=== PATIENT | female | born 1935 | race African-American/Black ===

== ENCOUNTER 2022-09-15 15:48 | Inpatient (IN) | payer MEDICARE, BC ==
[~2022-09-15] VITALS: Ht 170.2 cm; Wt 123.8 kg
[~2022-09-15 15:48] MED LIST: ASPI-1073 PO; HYDR25TA PO
[2022-09-15] MEDS ORDERED: CLONIDINE 0.1MG TABLET PO PRN (17:15)
[2022-09-15] MEDS ORDERED: ONDANSETRON HCL 4MG/2ML INJ IV PRN (17:15)
[2022-09-15 17:30] VITALS: BP 118/71
[2022-09-15] MEDS ORDERED: ACETAMINOPHEN 325MG TABLET PO PRN (18:00)
[2022-09-15 20:00] VITALS: BP 139/68
[2022-09-15] MEDS: ATORVASTATIN CALCIUM 40MG TABLET PO SCH (22:12)
[2022-09-16 08:00] VITALS: BP 137/85
[2022-09-16] MEDS: CLOPIDOGREL 75MG TABLET PO SCH (08:53)
[2022-09-16] MEDS: DOCUSATE SODIUM 250MG CAPSULE PO SCH (08:54)
[2022-09-16] MEDS: ASPIRIN 81MG TABLET PO SCH (08:54)
[2022-09-16 09:23] LABS: BASOPHILS % 0.6 % (0.0-2.0); EOSINOPHILS % 2.6 % (0.0-5.0); HEMATOCRIT. 43.8 % (36.0-48.0); HEMOGLOBIN. 14.3 g/dL (12.0-16.0); MEAN CORPUSCULAR HEMOGLOBIN 31.8 pg (28.0-32.0); MEAN CORPUSCULAR VOLUME 97.1 fL (81.0-99.0); MEAN PLATELET VOLUME 9.5 fl (7.4-10.4); MONOCYTES % 8.6 % (2.0-8.0); NEUTROPHILS % 61.2 % (40.0-76.0); PLATELET 220 x1000/uL (130-400); RED BLOOD CELL COUNT 4.51 mill/uL (4.2-5.4); RED CELL DISTRIBUTION WIDTH 13.3 % (11.6-14.6)
[2022-09-16 09:56] LABS: CHLORIDE 111 mEq/L (98-107)
[2022-09-16 10:22] LABS: HDL CHOLESTEROL 39 mg/dL (40-59); LDL CHOLESTEROL 59 mg/dL (5-100); TOTAL IRON BINDING CAPACITY 270 ug/dL (250-450)
[2022-09-16 10:31] LABS: FOLIC ACID (FOLATE) SERUM 10.4 ng/mL (>5.38)
[2022-09-16 12:00] VITALS: BP 133/87
[2022-09-16 16:00] VITALS: BP 130/81
[2022-09-16] MEDS: ENOXAPARIN 40MG/0.4ML SYR SUBCUT SCH (17:50)
[2022-09-16] MEDS ORDERED: LORAZEPAM 2MG/ML CPJ IV NR (18:30)
[2022-09-16 19:58] VITALS: BP 133/79
[2022-09-16] MEDS: ATORVASTATIN CALCIUM 40MG TABLET PO SCH (22:11)
[2022-09-17 08:00] VITALS: BP 146/86
[2022-09-17 08:55] LABS: CLARITY URINE CLEAR (CLEAR); COLOR URINE YELLOW (YELLOW)
[2022-09-17 08:56] LABS: KETONES URINE NEGATIVE (NEGATIVE); NITRITE URINE NEGATIVE (NEGATIVE); OCCULT BLOOD URINE NEGATIVE (NEGATIVE); PROTEIN URINE NEGATIVE (NEGATIVE)
[2022-09-17 08:57] LABS: LEUKOCYTE ESTERASE URINE NEGATIVE (NEGATIVE)
[2022-09-17] MEDS: ASPIRIN 81MG TABLET PO SCH (09:31)
[2022-09-17] MEDS: DOCUSATE SODIUM 250MG CAPSULE PO SCH (09:31)
[2022-09-17] MEDS: CLOPIDOGREL 75MG TABLET PO SCH (09:31)
[2022-09-17] MEDS: ENOXAPARIN 40MG/0.4ML SYR SUBCUT SCH (09:32)
[2022-09-17 17:37] LABS: EOSINOPHILS % 4.6 % (0.0-5.0); HEMATOCRIT. 39.2 % (36.0-48.0); HEMOGLOBIN. 12.9 g/dL (12.0-16.0); LYMPHOCYTES % 29.6 % (20.0-50.0); MEAN CORPUSCULAR HEMOGLOBIN 32.2 pg (28.0-32.0); MEAN CORPUSCULAR VOLUME 97.9 fL (81.0-99.0); MEAN PLATELET VOLUME 9.4 fl (7.4-10.4); NEUTROPHILS % 51.8 % (40.0-76.0); PLATELET 174 x1000/uL (130-400); RED BLOOD CELL COUNT 4.01 mill/uL (4.2-5.4); RED CELL DISTRIBUTION WIDTH 13.5 % (11.6-14.6)
[2022-09-17 20:00] VITALS: BP 108/58
[2022-09-17] MEDS: ATORVASTATIN CALCIUM 40MG TABLET PO SCH (21:16)
[2022-09-18 08:00] VITALS: BP 142/85
[2022-09-18] MEDS: ENOXAPARIN 40MG/0.4ML SYR SUBCUT SCH (10:34)
[2022-09-18] MEDS: ASPIRIN 81MG TABLET PO SCH (10:35)
[2022-09-18] MEDS: DOCUSATE SODIUM 250MG CAPSULE PO SCH (10:35)
[2022-09-18] MEDS: CLOPIDOGREL 75MG TABLET PO SCH (10:35)
[2022-09-18] MEDS: ATORVASTATIN CALCIUM 40MG TABLET PO SCH (21:32)
[2022-09-19 08:00] VITALS: BP 125/65
[2022-09-19] MEDS: CLOPIDOGREL 75MG TABLET PO SCH (08:48)
[2022-09-19] MEDS: ASPIRIN 81MG TABLET PO SCH (08:48)
[2022-09-19] MEDS: DOCUSATE SODIUM 250MG CAPSULE PO SCH (08:48)
[2022-09-19] MEDS: ENOXAPARIN 40MG/0.4ML SYR SUBCUT SCH (08:49)
[2022-09-19 20:00] VITALS: BP 142/70
[2022-09-19] MEDS: ATORVASTATIN CALCIUM 40MG TABLET PO SCH (21:41)
[2022-09-20 08:00] VITALS: BP 117/70
[2022-09-20] MEDS: ASPIRIN 81MG TABLET PO SCH (12:27)
[2022-09-20] MEDS: CLOPIDOGREL 75MG TABLET PO SCH (12:27)
[2022-09-20] MEDS: DOCUSATE SODIUM 250MG CAPSULE PO SCH (12:28)
[2022-09-20] MEDS: ENOXAPARIN 40MG/0.4ML SYR SUBCUT SCH (12:28)
[2022-09-20 20:00] VITALS: BP 122/79
[2022-09-20] MEDS: ATORVASTATIN CALCIUM 40MG TABLET PO SCH (20:51)
[2022-09-21 06:14] LABS: BASOPHILS % 0.5 % (0.0-2.0); EOSINOPHILS % 4.9 % (0.0-5.0); HEMATOCRIT. 41.3 % (36.0-48.0); HEMOGLOBIN. 13.6 g/dL (12.0-16.0); LYMPHOCYTES % 29.2 % (20.0-50.0); MEAN CORPUSCULAR HEMOGLOBIN 32.2 pg (28.0-32.0); MEAN CORPUSCULAR VOLUME 97.9 fL (81.0-99.0); MEAN PLATELET VOLUME 9.8 fl (7.4-10.4); MONOCYTES % 11.3 % (2.0-8.0); NEUTROPHILS % 54.1 % (40.0-76.0); PLATELET 180 x1000/uL (130-400); RED BLOOD CELL COUNT 4.22 mill/uL (4.2-5.4); RED CELL DISTRIBUTION WIDTH 13.4 % (11.6-14.6)
[2022-09-21 07:50] VITALS: BP 138/78
[2022-09-21] MEDS: DOCUSATE SODIUM 250MG CAPSULE PO SCH (07:53)
[2022-09-21] MEDS: ASPIRIN 81MG TABLET PO SCH (07:53)
[2022-09-21] MEDS: ENOXAPARIN 40MG/0.4ML SYR SUBCUT SCH (07:53)
[2022-09-21] MEDS: CLOPIDOGREL 75MG TABLET PO SCH (07:53)
[2022-09-21 19:45] VITALS: BP 120/75
[2022-09-21] MEDS: ATORVASTATIN CALCIUM 40MG TABLET PO SCH (22:18)
[2022-09-22 08:00] VITALS: BP 143/85
[2022-09-22] MEDS: ENOXAPARIN 40MG/0.4ML SYR SUBCUT SCH (10:10)
[2022-09-22] MEDS: ASPIRIN 81MG TABLET PO SCH (10:10)
[2022-09-22] MEDS: CLOPIDOGREL 75MG TABLET PO SCH (10:10)
[2022-09-22] MEDS: DOCUSATE SODIUM 250MG CAPSULE PO SCH (10:11)
[2022-09-22 20:00] VITALS: BP 128/83
[2022-09-22] MEDS: ATORVASTATIN CALCIUM 40MG TABLET PO SCH (21:51)
[2022-09-23 08:00] VITALS: BP 132/76
[2022-09-23] MEDS: DOCUSATE SODIUM 250MG CAPSULE PO SCH ×2 (08:58→09:04)
[2022-09-23] MEDS: CLOPIDOGREL 75MG TABLET PO SCH (08:59)
[2022-09-23] MEDS: ASPIRIN 81MG TABLET PO SCH (08:59)
[2022-09-23] MEDS: ENOXAPARIN 40MG/0.4ML SYR SUBCUT SCH (08:59)
[2022-09-23 20:00] VITALS: BP 113/74
[2022-09-23] MEDS: ATORVASTATIN CALCIUM 40MG TABLET PO SCH (21:56)
[2022-09-24 06:01] LABS: BASOPHILS % 0.8 % (0.0-2.0); EOSINOPHILS % 5.4 % (0.0-5.0); HEMATOCRIT. 39.1 % (36.0-48.0); HEMOGLOBIN. 12.8 g/dL (12.0-16.0); LYMPHOCYTES % 28.5 % (20.0-50.0); MEAN CORPUSCULAR HEMOGLOBIN 32.1 pg (28.0-32.0); MEAN PLATELET VOLUME 9.6 fl (7.4-10.4); MONOCYTES % 11.4 % (2.0-8.0); NEUTROPHILS % 53.9 % (40.0-76.0); PLATELET 192 x1000/uL (130-400); RED BLOOD CELL COUNT 3.99 mill/uL (4.2-5.4); RED CELL DISTRIBUTION WIDTH 13.3 % (11.6-14.6)
[2022-09-24 08:00] VITALS: BP 130/72
[2022-09-24] MEDS: ENOXAPARIN 40MG/0.4ML SYR SUBCUT SCH (08:53)
[2022-09-24] MEDS: CLOPIDOGREL 75MG TABLET PO SCH (08:53)
[2022-09-24] MEDS: ASPIRIN 81MG TABLET PO SCH (08:53)
[2022-09-24] MEDS: DOCUSATE SODIUM 250MG CAPSULE PO SCH (08:54)
[2022-09-24 20:12] VITALS: BP 134/74
[2022-09-24] MEDS: ATORVASTATIN CALCIUM 40MG TABLET PO SCH (21:14)
[2022-09-25 07:58] VITALS: BP 140/76
[2022-09-25] MEDS: DOCUSATE SODIUM 250MG CAPSULE PO SCH (08:33)
[2022-09-25] MEDS: ASPIRIN 81MG TABLET PO SCH (08:33)
[2022-09-25] MEDS: ENOXAPARIN 40MG/0.4ML SYR SUBCUT SCH (08:33)
[2022-09-25] MEDS: CLOPIDOGREL 75MG TABLET PO SCH (08:37)
[2022-09-25 19:58] VITALS: BP 124/78
[2022-09-25] MEDS: ATORVASTATIN CALCIUM 40MG TABLET PO SCH (21:00)
[2022-09-26 08:00] VITALS: BP 139/87
[2022-09-26] MEDS: ENOXAPARIN 40MG/0.4ML SYR SUBCUT SCH (09:44)
[2022-09-26] MEDS: ASPIRIN 81MG TABLET PO SCH (09:44)
[2022-09-26] MEDS: CLOPIDOGREL 75MG TABLET PO SCH (09:44)
[2022-09-26] MEDS: DOCUSATE SODIUM 250MG CAPSULE PO SCH (09:44)
[2022-09-26 20:00] VITALS: BP 111/63
[2022-09-26] MEDS: ATORVASTATIN CALCIUM 40MG TABLET PO SCH (21:03)
[2022-09-27 07:57] VITALS: BP 122/81
[2022-09-27] MEDS: DOCUSATE SODIUM 250MG CAPSULE PO SCH (10:11)
[2022-09-27] MEDS: ASPIRIN 81MG TABLET PO SCH (10:11)
[2022-09-27] MEDS: ENOXAPARIN 40MG/0.4ML SYR SUBCUT SCH (10:11)
[2022-09-27] MEDS: CLOPIDOGREL 75MG TABLET PO SCH (10:11)
[2022-09-27 20:00] VITALS: BP 144/77
[2022-09-27] MEDS: ATORVASTATIN CALCIUM 40MG TABLET PO SCH (21:33)
[2022-09-28 07:40] VITALS: BP 144/84
[2022-09-28] MEDS: CLOPIDOGREL 75MG TABLET PO SCH (08:54)
[2022-09-28] MEDS: ENOXAPARIN 40MG/0.4ML SYR SUBCUT SCH (08:55)
[2022-09-28] MEDS: ASPIRIN 81MG TABLET PO SCH (08:55)
[2022-09-28] MEDS: DOCUSATE SODIUM 250MG CAPSULE PO SCH (08:55)
[2022-09-28 19:50] VITALS: BP 140/80
[2022-09-28] MEDS: ATORVASTATIN CALCIUM 40MG TABLET PO SCH (21:50)
[2022-09-29 08:00] VITALS: BP 115/68
[2022-09-29] MEDS: CLOPIDOGREL 75MG TABLET PO SCH (09:03)
[2022-09-29] MEDS: DOCUSATE SODIUM 250MG CAPSULE PO SCH (09:03)
[2022-09-29] MEDS: ASPIRIN 81MG TABLET PO SCH (09:03)
[2022-09-29] MEDS: ENOXAPARIN 40MG/0.4ML SYR SUBCUT SCH (09:05)
[2022-09-29 20:00] VITALS: BP 155/80
[2022-09-29] MEDS: ATORVASTATIN CALCIUM 40MG TABLET PO SCH (21:52)
[2022-09-30 05:55] LABS: BASOPHILS % 0.7 % (0.0-2.0); EOSINOPHILS % 7.3 % (0.0-5.0); HEMATOCRIT. 39.6 % (36.0-48.0); HEMOGLOBIN. 13.4 g/dL (12.0-16.0); LYMPHOCYTES % 28.4 % (20.0-50.0); MEAN CORPUSCULAR HEMOGLOBIN 32.7 pg (28.0-32.0); MEAN CORPUSCULAR VOLUME 96.8 fL (81.0-99.0); MEAN PLATELET VOLUME 9.1 fl (7.4-10.4); MONOCYTES % 9.5 % (2.0-8.0); NEUTROPHILS % 54.1 % (40.0-76.0); PLATELET 195 x1000/uL (130-400); RED BLOOD CELL COUNT 4.09 mill/uL (4.2-5.4); RED CELL DISTRIBUTION WIDTH 13.6 % (11.6-14.6)
[2022-09-30 07:40] VITALS: BP 106/66
[2022-09-30] MEDS: CLOPIDOGREL 75MG TABLET PO SCH (08:16)
[2022-09-30] MEDS: ASPIRIN 81MG TABLET PO SCH (08:16)
[2022-09-30] MEDS: DOCUSATE SODIUM 250MG CAPSULE PO SCH (08:16)
[2022-09-30] MEDS: ENOXAPARIN 40MG/0.4ML SYR SUBCUT SCH (08:17)
[2022-09-30 19:41] VITALS: BP 113/68
[2022-09-30] MEDS: ATORVASTATIN CALCIUM 40MG TABLET PO SCH (20:17)
[2022-10-01 08:00] VITALS: BP 107/107
[2022-10-01] MEDS: ASPIRIN 81MG TABLET PO SCH (09:09)
[2022-10-01] MEDS: CLOPIDOGREL 75MG TABLET PO SCH (09:09)
[2022-10-01] MEDS: DOCUSATE SODIUM 250MG CAPSULE PO SCH (09:09)
[2022-10-01] MEDS: ENOXAPARIN 40MG/0.4ML SYR SUBCUT SCH (09:09)
[2022-10-01 19:47] VITALS: BP 119/71
[2022-10-01] MEDS ORDERED: LACTULOSE 20G/30ML UDC PO NR (20:00)
[2022-10-01] MEDS: ATORVASTATIN CALCIUM 40MG TABLET PO SCH (21:16)
[2022-10-02 08:00] VITALS: BP 104/64
[2022-10-02] MEDS ORDERED: POLYETHYLENE GLYCOL 3350 (17GM) 1 DOSE PACK PO SCH (09:00)
[2022-10-02] MEDS: DOCUSATE SODIUM 250MG CAPSULE PO SCH (09:08)
[2022-10-02] MEDS: CLOPIDOGREL 75MG TABLET PO SCH (09:08)
[2022-10-02] MEDS: ASPIRIN 81MG TABLET PO SCH (09:08)
[2022-10-02] MEDS: ENOXAPARIN 40MG/0.4ML SYR SUBCUT SCH (09:10)
[2022-10-02] MEDS ORDERED: ONDANSETRON HCL 4MG TABLET PO PRN (11:00)
[2022-10-02 14:16] VITALS: BP 119/79
[2022-10-02 15:43] LABS: BASOPHILS % 0.8 % (0.0-2.0); EOSINOPHILS % 4.1 % (0.0-5.0); HEMATOCRIT. 41.3 % (36.0-48.0); HEMOGLOBIN. 13.5 g/dL (12.0-16.0); LYMPHOCYTES % 29.3 % (20.0-50.0); MEAN CORPUSCULAR VOLUME 98.1 fL (81.0-99.0); MEAN PLATELET VOLUME 9.3 fl (7.4-10.4); MONOCYTES % 11.4 % (2.0-8.0); NEUTROPHILS % 54.4 % (40.0-76.0); PLATELET 181 x1000/uL (130-400); RED BLOOD CELL COUNT 4.21 mill/uL (4.2-5.4); RED CELL DISTRIBUTION WIDTH 13.6 % (11.6-14.6)
== END 2022-10-02 15:30 | disposition short-term general hospital (02) | DRG 64 ==
LOC: 4WST 16:46
PROVIDERS: ADMIT Physical Medicine & Rehabilitation Spinal Cord Injury Medicine; ATTEND Internal Medicine Nephrology
DX: I63.9 Cerebral infarction, unspecified (principal); G93.41 Metabolic encephalopathy; F01.53 Vascular dementia, unspecified severity, with mood disturbance; N17.9 Acute kidney failure, unspecified; J98.11 Atelectasis; I69.351 Hemiplegia and hemiparesis following cerebral infarction affecting right dominant side; D63.8 Anemia in other chronic diseases classified elsewhere; E11.22 Type 2 diabetes mellitus with diabetic chronic kidney disease; E66.9 Obesity, unspecified; E78.00 Pure hypercholesterolemia, unspecified; I87.8 Other specified disorders of veins; N18.9 Chronic kidney disease, unspecified; F80.9 Developmental disorder of speech and language, unspecified; R53.81 Other malaise; I12.9 Hypertensive chronic kidney disease with stage 1 through stage 4 chronic kidney disease, or unspecified chronic kidney disease; I69.320 Aphasia following cerebral infarction; I69.322 Dysarthria following cerebral infarction; I69.391 Dysphagia following cerebral infarction; Z91.81 History of falling; Z82.49 Family history of ischemic heart disease and other diseases of the circulatory system
CPT/HCPCS: 36415; 71045; 80048; 80053; 80061; 81003; 82140; 82306; 82607; 82728; 82746; 82962; 83036; 83540; 83550; 83735; 84134; 84443; 85025; 92523; 92610; 93005; 93306; 93970; 97110; 97112; 97162; 97166; 97530; 97535; 97542; A4565; A6261; C1893; J1650; J2405

== ENCOUNTER 2022-10-02 16:22 | Inpatient (IN) | payer MEDICARE, BC ==
[~2022-10-02] VITALS: Ht 167.6 cm; Wt 127.2 kg
[2022-10-02 15:45] VITALS: BP 146/100
[2022-10-02 16:00] VITALS: BP 146/104
[2022-10-02 18:00] VITALS: BP 146/75
[2022-10-02 20:00] VITALS: BP 129/92
[2022-10-02] MEDS ORDERED: HALOPERIDOL LACTATE 5MG/ML VIAL IM NR (20:30)
[2022-10-02] MEDS ORDERED: DIPHENHYDRAMINE 50MG/ML VIAL IV NR (20:30)
[2022-10-02] MEDS: CLOPIDOGREL 75MG TABLET PO SCH (20:40)
[2022-10-02] MEDS: ATORVASTATIN CALCIUM 40MG TABLET PO SCH (20:40)
[2022-10-02] MEDS: ASPIRIN 81MG TABLET PO SCH (20:40)
[2022-10-02 22:00] VITALS: BP 119/77
[2022-10-03] VITALS (10 sets, daily range): BP systolic 93–139; BP diastolic 62–99
[2022-10-03 00:06] LABS: CLARITY URINE CLEAR (CLEAR); COLOR URINE YELLOW (YELLOW); KETONES URINE NEGATIVE (NEGATIVE); LEUKOCYTE ESTERASE URINE 2+ (NEGATIVE); NITRITE URINE NEGATIVE (NEGATIVE); OCCULT BLOOD URINE NEGATIVE (NEGATIVE); PH URINE 6.5 (4.5-8.0); PROTEIN URINE NEGATIVE (NEGATIVE); SPECIFIC GRAVITY URINE 1.016 (1.005-1.030)
[2022-10-03] MEDS: ASPIRIN 81MG TABLET PO SCH (08:53)
[2022-10-03] MEDS: CLOPIDOGREL 75MG TABLET PO SCH (08:53)
[2022-10-03] MEDS ORDERED: IPRATROPIUM/ALBUTEROL 0.5-3(2.5)MG/3ML NEB HHN PRN (12:30)
[2022-10-03] MEDS ORDERED: IPRATROPIUM BROMIDE (0.02%) 0.5MG/2.5ML NEB HHN PRN (18:30)
[2022-10-03] MEDS ORDERED: ALBUTEROL (0.083%) 2.5MG/3ML NEB HHN PRN (18:30)
[2022-10-04] VITALS: BP 120/86
[2022-10-04 04:00] VITALS: BP_SYST 118; BP_SYST 94; BP_DIAS 72; BP_DIAS 84
[2022-10-04 08:10] VITALS: BP 136/82
[2022-10-04] MEDS: ASPIRIN 81MG TABLET PO SCH (09:13)
[2022-10-04] MEDS: CLOPIDOGREL 75MG TABLET PO SCH (09:14)
[2022-10-04] MEDS: LIDOCAINE 5% PATCH TOP SCH (09:56)
[2022-10-04] MEDS ORDERED: DIPHENHYDRAMINE 50MG/ML VIAL IV NR (10:45)
[2022-10-04 12:00] VITALS: BP 108/60
[2022-10-04] MEDS: DICLOFENAC SODIUM 1% GEL 50GM TOP SCH ×3 (14:23→20:51)
[2022-10-04 16:00] VITALS: BP 108/68
[2022-10-04 20:00] VITALS: BP 151/92
[2022-10-04] MEDS: ATORVASTATIN CALCIUM 40MG TABLET PO SCH (20:50)
[2022-10-05] VITALS: BP 134/87
[2022-10-05 04:00] VITALS: BP 101/72
[2022-10-05 08:00] VITALS: BP 119/67
[2022-10-05] MEDS: ASPIRIN 81MG TABLET PO SCH (09:09)
[2022-10-05] MEDS: CLOPIDOGREL 75MG TABLET PO SCH (09:09)
[2022-10-05] MEDS: DICLOFENAC SODIUM 1% GEL 50GM TOP SCH ×4 (09:17→21:00)
[2022-10-05] MEDS: LIDOCAINE 5% PATCH TOP SCH (09:29)
[2022-10-05 12:00] VITALS: BP 103/67
[2022-10-05 16:00] VITALS: BP 115/73
[2022-10-05 20:00] VITALS: BP 118/74
[2022-10-05] MEDS: ATORVASTATIN CALCIUM 40MG TABLET PO SCH (21:00)
[2022-10-06] VITALS: BP 117/69
[2022-10-06 04:00] VITALS: BP 107/79
[2022-10-06 06:15] LABS: BASOPHILS % 0.6 % (0.0-2.0); HEMATOCRIT. 42.9 % (36.0-48.0); HEMOGLOBIN. 14.2 g/dL (12.0-16.0); LYMPHOCYTES % 29.8 % (20.0-50.0); MEAN CORPUSCULAR VOLUME 97.1 fL (81.0-99.0); MEAN PLATELET VOLUME 9.7 fl (7.4-10.4); MONOCYTES % 10.6 % (2.0-8.0); PLATELET 187 x1000/uL (130-400); RED BLOOD CELL COUNT 4.42 mill/uL (4.2-5.4); RED CELL DISTRIBUTION WIDTH 13.7 % (11.6-14.6)
[2022-10-06 08:00] VITALS: BP 116/73
[2022-10-06 08:20] LABS: CHLORIDE 109 mEq/L (98-107)
[2022-10-06] MEDS: LIDOCAINE 5% PATCH TOP SCH (09:29)
[2022-10-06] MEDS: CLOPIDOGREL 75MG TABLET PO SCH (09:29)
[2022-10-06] MEDS: DICLOFENAC SODIUM 1% GEL 50GM TOP SCH ×4 (09:30→20:31)
[2022-10-06] MEDS: ASPIRIN 81MG TABLET PO SCH (09:30)
[2022-10-06 12:00] VITALS: BP 102/77
[2022-10-06] MEDS: ENOXAPARIN 40MG/0.4ML SYR SUBCUT SCH (13:43)
[2022-10-06 16:00] VITALS: BP 108/73
[2022-10-06 20:00] VITALS: BP 112/78
[2022-10-06] MEDS: ATORVASTATIN CALCIUM 40MG TABLET PO SCH (20:31)
[2022-10-07] VITALS: BP 127/68
[2022-10-07 04:00] VITALS: BP 101/54
[2022-10-07 08:11] VITALS: BP 156/72
[2022-10-07] MEDS: DICLOFENAC SODIUM 1% GEL 50GM TOP SCH ×4 (09:08→21:37)
[2022-10-07] MEDS: LIDOCAINE 5% PATCH TOP SCH (09:08)
[2022-10-07] MEDS: CLOPIDOGREL 75MG TABLET PO SCH (09:21)
[2022-10-07] MEDS: ASPIRIN 81MG TABLET PO SCH (09:21)
[2022-10-07 12:10] VITALS: BP 102/72
[2022-10-07] MEDS: ENOXAPARIN 40MG/0.4ML SYR SUBCUT SCH (14:47)
[2022-10-07 16:30] VITALS: BP 94/60
[2022-10-07 20:00] VITALS: BP 116/70
[2022-10-07] MEDS: ATORVASTATIN CALCIUM 40MG TABLET PO SCH (21:37)
[2022-10-08] VITALS: BP 122/68
[2022-10-08 04:00] VITALS: BP 131/63
[2022-10-08 08:00] VITALS: BP 112/72
[2022-10-08] MEDS: CLOPIDOGREL 75MG TABLET PO SCH (08:23)
[2022-10-08] MEDS: ASPIRIN 81MG TABLET PO SCH (08:23)
[2022-10-08] MEDS: LIDOCAINE 5% PATCH TOP SCH (08:25)
[2022-10-08] MEDS: DICLOFENAC SODIUM 1% GEL 50GM TOP SCH ×4 (08:44→22:06)
[2022-10-08 12:00] VITALS: BP 104/60
[2022-10-08] MEDS: ENOXAPARIN 40MG/0.4ML SYR SUBCUT SCH (14:34)
[2022-10-08 16:18] VITALS: BP 96/56
[2022-10-08 20:00] VITALS: BP 117/69
[2022-10-08] MEDS: ATORVASTATIN CALCIUM 40MG TABLET PO SCH (22:05)
[2022-10-09] VITALS (7 sets, daily range): BP systolic 96–121; BP diastolic 54–77
[2022-10-09 06:52] LABS: BASOPHILS % 0.4 % (0.0-2.0); EOSINOPHILS % 9.2 % (0.0-5.0); HEMOGLOBIN. 13.4 g/dL (12.0-16.0); LYMPHOCYTES % 33.4 % (20.0-50.0); MEAN CORPUSCULAR HEMOGLOBIN 32.7 pg (28.0-32.0); MEAN CORPUSCULAR VOLUME 97.4 fL (81.0-99.0); MEAN PLATELET VOLUME 9.2 fl (7.4-10.4); MONOCYTES % 11.2 % (2.0-8.0); NEUTROPHILS % 45.8 % (40.0-76.0); PLATELET 165 x1000/uL (130-400); RED BLOOD CELL COUNT 4.11 mill/uL (4.2-5.4); RED CELL DISTRIBUTION WIDTH 13.1 % (11.6-14.6)
[2022-10-09 08:28] LABS: PHOSPHORUS 4.1 mg/dL (2.5-4.9)
[2022-10-09] MEDS: ASPIRIN 81MG TABLET PO SCH (08:41)
[2022-10-09] MEDS: CLOPIDOGREL 75MG TABLET PO SCH (08:41)
[2022-10-09] MEDS: LIDOCAINE 5% PATCH TOP SCH (08:42)
[2022-10-09] MEDS: DICLOFENAC SODIUM 1% GEL 50GM TOP SCH ×4 (08:42→22:31)
[2022-10-09] MEDS: LEVETIRACETAM 250MG TABLET PO SCH ×2 (08:42→21:37)
[2022-10-09] MEDS: ENOXAPARIN 40MG/0.4ML SYR SUBCUT SCH (14:15)
[2022-10-09] MEDS: ATORVASTATIN CALCIUM 40MG TABLET PO SCH (21:37)
[2022-10-10] VITALS: BP 100/70
[2022-10-10 04:00] VITALS: BP 111/75
[2022-10-10 08:00] VITALS: BP 104/65
[2022-10-10] MEDS: ASPIRIN 81MG TABLET PO SCH (08:59)
[2022-10-10] MEDS: CLOPIDOGREL 75MG TABLET PO SCH (08:59)
[2022-10-10] MEDS: LIDOCAINE 5% PATCH TOP SCH (08:59)
[2022-10-10] MEDS: LEVETIRACETAM 250MG TABLET PO SCH ×2 (08:59→21:56)
[2022-10-10] MEDS: DICLOFENAC SODIUM 1% GEL 50GM TOP SCH ×4 (09:02→21:00)
[2022-10-10 12:00] VITALS: BP 104/64
[2022-10-10] MEDS: ENOXAPARIN 40MG/0.4ML SYR SUBCUT SCH (13:29)
[2022-10-10 16:00] VITALS: BP 108/71
[2022-10-10 20:00] VITALS: BP 116/66
[2022-10-10] MEDS: ATORVASTATIN CALCIUM 40MG TABLET PO SCH (21:56)
[2022-10-11] VITALS: BP 111/60
[2022-10-11 04:00] VITALS: BP 106/56
[2022-10-11 06:41] LABS: BASOPHILS % 0.8 % (0.0-2.0); EOSINOPHILS % 11.1 % (0.0-5.0); HEMATOCRIT. 38.9 % (36.0-48.0); HEMOGLOBIN. 13.2 g/dL (12.0-16.0); MEAN CORPUSCULAR HEMOGLOBIN 33.1 pg (28.0-32.0); MEAN CORPUSCULAR VOLUME 97.2 fL (81.0-99.0); MEAN PLATELET VOLUME 9.4 fl (7.4-10.4); MONOCYTES % 10.5 % (2.0-8.0); NEUTROPHILS % 43.6 % (40.0-76.0); PLATELET 149 x1000/uL (130-400); RED BLOOD CELL COUNT 4.01 mill/uL (4.2-5.4); RED CELL DISTRIBUTION WIDTH 13.6 % (11.6-14.6)
[2022-10-11 08:00] VITALS: BP 108/64
[2022-10-11] MEDS: DICLOFENAC SODIUM 1% GEL 50GM TOP SCH ×4 (10:03→20:48)
[2022-10-11] MEDS: CLOPIDOGREL 75MG TABLET PO SCH (10:04)
[2022-10-11] MEDS: LIDOCAINE 5% PATCH TOP SCH (10:06)
[2022-10-11] MEDS: ASPIRIN 81MG TABLET PO SCH (10:07)
[2022-10-11] MEDS: LEVETIRACETAM 250MG TABLET PO SCH ×2 (10:07→20:48)
[2022-10-11 12:00] VITALS: BP 112/66
[2022-10-11] MEDS: ENOXAPARIN 40MG/0.4ML SYR SUBCUT SCH (13:41)
[2022-10-11 16:00] VITALS: BP 101/65
[2022-10-11 20:00] VITALS: BP 125/75
[2022-10-11] MEDS: ATORVASTATIN CALCIUM 40MG TABLET PO SCH (20:48)
[2022-10-12] VITALS: BP_SYST 108; BP_SYST 126; BP_DIAS 60; BP_DIAS 75
[2022-10-12 04:00] VITALS: BP 133/72
[2022-10-12 08:00] VITALS: BP 126/75
[2022-10-12] MEDS: LEVETIRACETAM 250MG TABLET PO SCH ×2 (09:24→20:36)
[2022-10-12] MEDS: ASPIRIN 81MG TABLET PO SCH (09:24)
[2022-10-12] MEDS: CLOPIDOGREL 75MG TABLET PO SCH (09:24)
[2022-10-12] MEDS: LIDOCAINE 5% PATCH TOP SCH (09:25)
[2022-10-12] MEDS: DICLOFENAC SODIUM 1% GEL 50GM TOP SCH ×4 (09:26→20:37)
[2022-10-12] MEDS ORDERED: DOCUSATE SODIUM 100MG CAPSULE PO SCH (10:00)
[2022-10-12 12:00] VITALS: BP 124/79
[2022-10-12] MEDS: POLYETHYLENE GLYCOL 3350 (17GM) 1 DOSE PACK PO SCH (13:21)
[2022-10-12] MEDS: ENOXAPARIN 40MG/0.4ML SYR SUBCUT SCH (13:23)
[2022-10-12 16:00] VITALS: BP 121/77
[2022-10-12 20:00] VITALS: BP 128/69
[2022-10-12] MEDS: ATORVASTATIN CALCIUM 40MG TABLET PO SCH (20:36)
[2022-10-12] MEDS: DOCUSATE SODIUM 100MG CAPSULE PO SCH (20:36)
[2022-10-13] VITALS: BP 137/92
[2022-10-13 04:00] VITALS: BP 131/78
[2022-10-13 08:00] VITALS: BP 119/77
[2022-10-13] MEDS: POLYETHYLENE GLYCOL 3350 (17GM) 1 DOSE PACK PO SCH (09:09)
[2022-10-13] MEDS: CLOPIDOGREL 75MG TABLET PO SCH (09:09)
[2022-10-13] MEDS: LEVETIRACETAM 250MG TABLET PO SCH ×2 (09:09→21:13)
[2022-10-13] MEDS: ASPIRIN 81MG TABLET PO SCH (09:09)
[2022-10-13] MEDS: DOCUSATE SODIUM 100MG CAPSULE PO SCH ×2 (09:09→21:13)
[2022-10-13] MEDS: LIDOCAINE 5% PATCH TOP SCH (09:11)
[2022-10-13] MEDS: DICLOFENAC SODIUM 1% GEL 50GM TOP SCH ×4 (10:05→21:13)
[2022-10-13 12:00] VITALS: BP 107/66
[2022-10-13] MEDS: ENOXAPARIN 40MG/0.4ML SYR SUBCUT SCH (14:53)
[2022-10-13 16:00] VITALS: BP 110/60
[2022-10-13 20:00] VITALS: BP 116/75
[2022-10-13] MEDS: ATORVASTATIN CALCIUM 40MG TABLET PO SCH (21:13)
[2022-10-14] VITALS: BP 135/87
[2022-10-14 04:00] VITALS: BP 107/71
[2022-10-14 08:00] VITALS: BP 101/68
[2022-10-14] MEDS: DOCUSATE SODIUM 100MG CAPSULE PO SCH ×2 (09:54→21:59)
[2022-10-14] MEDS: ASPIRIN 81MG TABLET PO SCH (09:54)
[2022-10-14] MEDS: LEVETIRACETAM 250MG TABLET PO SCH ×2 (09:54→21:59)
[2022-10-14] MEDS: CLOPIDOGREL 75MG TABLET PO SCH (09:55)
[2022-10-14] MEDS: POLYETHYLENE GLYCOL 3350 (17GM) 1 DOSE PACK PO SCH (10:02)
[2022-10-14] MEDS: LIDOCAINE 5% PATCH TOP SCH (10:06)
[2022-10-14] MEDS: DICLOFENAC SODIUM 1% GEL 50GM TOP SCH ×4 (10:09→21:59)
[2022-10-14 12:00] VITALS: BP 97/64
[2022-10-14] MEDS: ENOXAPARIN 40MG/0.4ML SYR SUBCUT SCH (14:00)
[2022-10-14 16:00] VITALS: BP 119/78
[2022-10-14 20:00] VITALS: BP 140/95
[2022-10-14] MEDS: ATORVASTATIN CALCIUM 40MG TABLET PO SCH (21:59)
[2022-10-15] VITALS: BP 120/81
[2022-10-15 08:00] VITALS: BP 112/70
[2022-10-15] MEDS: DICLOFENAC SODIUM 1% GEL 50GM TOP SCH ×4 (09:00→21:42)
[2022-10-15] MEDS: DOCUSATE SODIUM 100MG CAPSULE PO SCH ×2 (09:57→21:40)
[2022-10-15] MEDS: ASPIRIN 81MG TABLET PO SCH (09:57)
[2022-10-15] MEDS: LEVETIRACETAM 250MG TABLET PO SCH ×2 (09:57→21:40)
[2022-10-15] MEDS: CLOPIDOGREL 75MG TABLET PO SCH (09:57)
[2022-10-15] MEDS: POLYETHYLENE GLYCOL 3350 (17GM) 1 DOSE PACK PO SCH (09:58)
[2022-10-15] MEDS: LIDOCAINE 5% PATCH TOP SCH (09:58)
[2022-10-15 12:00] VITALS: BP 102/69
[2022-10-15] MEDS: ENOXAPARIN 40MG/0.4ML SYR SUBCUT SCH (14:34)
[2022-10-15 16:00] VITALS: BP 110/63
[2022-10-15 20:00] VITALS: BP 90/55
[2022-10-15] MEDS: ATORVASTATIN CALCIUM 40MG TABLET PO SCH (21:40)
[2022-10-16] VITALS: BP 100/72
[2022-10-16 04:00] VITALS: BP 118/78
[2022-10-16 08:00] VITALS: BP 109/66
[2022-10-16] MEDS: POLYETHYLENE GLYCOL 3350 (17GM) 1 DOSE PACK PO SCH (10:39)
[2022-10-16] MEDS: DOCUSATE SODIUM 100MG CAPSULE PO SCH ×2 (10:40→21:50)
[2022-10-16] MEDS: LIDOCAINE 5% PATCH TOP SCH (10:40)
[2022-10-16] MEDS: CLOPIDOGREL 75MG TABLET PO SCH (10:40)
[2022-10-16] MEDS: ASPIRIN 81MG TABLET PO SCH (10:40)
[2022-10-16] MEDS: LEVETIRACETAM 250MG TABLET PO SCH ×2 (10:41→21:50)
[2022-10-16] MEDS: DICLOFENAC SODIUM 1% GEL 50GM TOP SCH ×4 (10:41→21:54)
[2022-10-16 12:00] VITALS: BP 112/70
[2022-10-16] MEDS: ENOXAPARIN 40MG/0.4ML SYR SUBCUT SCH (17:06)
[2022-10-16 20:00] VITALS: BP 108/66
[2022-10-16] MEDS: ATORVASTATIN CALCIUM 40MG TABLET PO SCH (21:50)
[2022-10-17] VITALS (7 sets, daily range): BP systolic 98–114; BP diastolic 60–75
[2022-10-17] MEDS: LEVETIRACETAM 250MG TABLET PO SCH (09:51)
[2022-10-17] MEDS: ASPIRIN 81MG TABLET PO SCH (09:51)
[2022-10-17] MEDS: DOCUSATE SODIUM 100MG CAPSULE PO SCH (09:52)
[2022-10-17] MEDS: CLOPIDOGREL 75MG TABLET PO SCH (09:52)
[2022-10-17] MEDS: POLYETHYLENE GLYCOL 3350 (17GM) 1 DOSE PACK PO SCH (09:52)
[2022-10-17] MEDS: LIDOCAINE 5% PATCH TOP SCH (09:53)
[2022-10-17] MEDS: DICLOFENAC SODIUM 1% GEL 50GM TOP SCH ×3 (09:55→17:36)
[2022-10-17] MEDS: ENOXAPARIN 40MG/0.4ML SYR SUBCUT SCH (13:35)
[2022-10-18] VITALS: BP 135/60
[2022-10-18 04:00] VITALS: BP 109/74
[2022-10-18 08:00] VITALS: BP 97/65
[2022-10-18] MEDS: DICLOFENAC SODIUM 1% GEL 50GM TOP SCH (09:00)
[2022-10-18] MEDS: DOCUSATE SODIUM 100MG CAPSULE PO SCH (09:23)
[2022-10-18] MEDS: LEVETIRACETAM 250MG TABLET PO SCH (09:24)
[2022-10-18] MEDS: POLYETHYLENE GLYCOL 3350 (17GM) 1 DOSE PACK PO SCH (09:25)
[2022-10-18] MEDS: ASPIRIN 81MG TABLET PO SCH (09:25)
[2022-10-18] MEDS: LIDOCAINE 5% PATCH TOP SCH (09:28)
[2022-10-18] MEDS: CLOPIDOGREL 75MG TABLET PO SCH (09:29)
[2022-10-18 12:00] VITALS: BP 108/78
== END 2022-10-18 12:35 | DRG 73 ==
LOC: MICUNO 16:22 → 7EST 10-03 18:15
PROVIDERS: ADMIT Internal Medicine Nephrology; ATTEND Internal Medicine Nephrology
PROC: 5A09357 Assistance with Respiratory Ventilation, Less than 24 Consecutive Hours, Continuous Positive Airway Pressure (ICD-10-PCS; principal; 2022-10-07)
DX: G90.8 Other disorders of autonomic nervous system (principal); G93.41 Metabolic encephalopathy; G45.9 Transient cerebral ischemic attack, unspecified; N17.9 Acute kidney failure, unspecified; J98.11 Atelectasis; I69.351 Hemiplegia and hemiparesis following cerebral infarction affecting right dominant side; F03.90 Unspecified dementia, unspecified severity, without behavioral disturbance, psychotic disturbance, mood disturbance, and anxiety; R56.9 Unspecified convulsions; E66.9 Obesity, unspecified; E78.00 Pure hypercholesterolemia, unspecified; M17.0 Bilateral primary osteoarthritis of knee; D63.8 Anemia in other chronic diseases classified elsewhere; E11.22 Type 2 diabetes mellitus with diabetic chronic kidney disease; I87.8 Other specified disorders of veins; I12.9 Hypertensive chronic kidney disease with stage 1 through stage 4 chronic kidney disease, or unspecified chronic kidney disease; N18.30 Chronic kidney disease, stage 3 unspecified; Z79.4 Long term (current) use of insulin
CPT/HCPCS: 36415; 70544; 70553; 71045; 73560; 74230; 80048; 80053; 81003; 82962; 83735; 84100; 85025; 92610; 92611; 93880; 93970; 97110; 97162; 97166; 97530; A6261; C1893; J1200; J1650; A4315